=== PATIENT | female | born 1955 | race Caucasian/White ===

== ENCOUNTER 2020-03-18 11:44 | Outpatient (REF) | payer MEDICARE, SELFPAY ==
[2020-03-18 22:09] LABS: Abs Immature Grans 0.06 k/cumm (0.0-0.09); Absolute Basophil Count 0.03 k/cumm (0.0-0.2); Absolute Eosinophil Count 0.31 k/cumm (0.0-0.7); Absolute Lymphocyte Count 1.51 k/cumm (1.2-3.4); Absolute Monocyte Count 1.09 k/cumm (0.11-0.7); Basophils % 0.3; Eosinophils % 2.7; Immature Grans % 0.5 %; Mean Corp. HGB Concentration 34.1 g/dL (32.0-36.0); Mean Corpuscular Hemoglobin 32.4 pg (27.0-33.0); Mean Corpuscular Volume 94.9 fL (80-95); Mean Platelet Volume 9.8 fL (8.0-11.0); Monocytes % 9.4; Neutrophils % 74.1; Platelet Count 257 x1000/uL (130-400); RBC 4.32 m/cumm (4.00-5.20); RBC Distribution Width 13.2 % (11.7-14.6); White Blood Cell Count 11.64 k/cumm (4.4-10.8)
[2020-03-18 22:13] LABS: Absolute Neutrophil Count 8.63 k/cumm (1.2-6.7)
[2020-03-18 22:17] LABS: ALT 84 U/L (14-59); AST 96 U/L (15-37); Albumin 3.5 g/dL (3.4-5.0); Alkaline Phosphatase 205 U/L (46-116); Anion Gap 8.9 mmol/L (3-11); BUN 15 mg/dL (7-18); Bilirubin, Total 0.7 mg/dL (0.2-1.0); CO2 24.1 mmol/L (21.0-32.0); CREATININE 0.95 mg/dL (0.55-1.02); Calcium 9.6 mg/dL (8.5-10.1); Calculated LDL 91 mg/dL (<100); Chloride 84 mmol/L (98-107); Cholesterol 149 mg/dL (<200); Estimated GFR 59.04 (mL/min/1.73m2); Glucose 86 mg/dL (74-106); HDL Cholesterol 37 mg/dL (40-60); Potassium 5.3 mmol/L (3.5-5.1); Total Protein 7.2 g/dL (6.4-8.2); Triglyceride 105 mg/dL (<150)
[2020-03-18 22:26] LABS: Sodium 117 mmol/L (136-145)
[2020-03-18 22:28] LABS: Hemoglobin A1C 5.3 % (3.8-5.6)
== END 2020-03-18 12:04 ==
LOC: NCHCN 11:44
PROVIDERS: PCP Family Medicine; Visit Provider Nurse Practitioner Family
DX: I10 Essential (primary) hypertension (principal); E78.00 Pure hypercholesterolemia, unspecified; M54.5 Low back pain
CPT/HCPCS: 80053; 80061; 83036; 85025

== ENCOUNTER 2020-04-02 11:09 | Outpatient (REF) | payer MEDICARE, SELFPAY ==
[2020-04-02 22:26] LABS: ALT 26 U/L (14-59); AST 30 U/L (15-37); Alkaline Phosphatase 176 U/L (46-116); Anion Gap 12.1 mmol/L (3-11); BUN 7 mg/dL (7-18); Bilirubin, Total 0.7 mg/dL (0.2-1.0); CO2 22.9 mmol/L (21.0-32.0); CREATININE 0.83 mg/dL (0.55-1.02); Calcium 9.8 mg/dL (8.5-10.1); Chloride 94 mmol/L (98-107); Potassium 5.2 mmol/L (3.5-5.1); Sodium 129 mmol/L (136-145); Total Protein 7.3 g/dL (6.4-8.2)
[2020-04-02 22:35] LABS: Albumin 3.4 g/dL (3.4-5.0); Glucose 87 mg/dL (74-106)
[2020-04-04 08:56] LABS: Lipase 93 U/L (73-393)
== END 2020-04-02 11:29 ==
LOC: NCHCN 11:09
PROVIDERS: PCP Family Medicine; Visit Provider Nurse Practitioner Family
DX: E87.1 Hypo-osmolality and hyponatremia (principal); F10.10 Alcohol abuse, uncomplicated; M54.5 Low back pain
CPT/HCPCS: 80053; 83690

== ENCOUNTER 2020-10-24 13:48 | Outpatient (REF) | payer MEDICARE, SELFPAY ==
[2020-10-24 20:51] LABS: ALT 22 U/L (14-59); AST 31 U/L (15-37); Albumin 3.2 g/dL (3.4-5.0); Alkaline Phosphatase 170 U/L (46-116); Anion Gap 7.1 mmol/L (3-11); BUN 6 mg/dL (7-18); Bilirubin, Total 0.5 mg/dL (0.2-1.0); CO2 26.9 mmol/L (21.0-32.0); CREATININE 0.7 mg/dL (0.55-1.02); Calcium 9.3 mg/dL (8.5-10.1); Chloride 96 mmol/L (98-107); Glucose 99 mg/dL (74-106); Magnesium 1.7 mg/dL (1.8-2.4); Potassium 4.6 mmol/L (3.5-5.1); Sodium 130 mmol/L (136-145); TSH (W/Ref FT4) 1.25 uIU/mL (0.36-3.74); Total Protein 6.9 g/dL (6.4-8.2)
== END 2020-10-24 14:08 ==
LOC: NCHCN 13:48
PROVIDERS: PCP Family Medicine; Visit Provider Nurse Practitioner Family
DX: I10 Essential (primary) hypertension (principal); E87.5 Hyperkalemia
CPT/HCPCS: 80053; 83735; 84443

== ENCOUNTER 2021-01-02 14:57 | Outpatient (REF) | payer MEDICARE, SELFPAY ==
[2021-01-02 20:29] LABS: Abs Immature Grans 0.03 10^3/uL (0.0-0.06); Absolute Basophil Count 0.07 10^3/uL (0.0-0.2); Absolute Lymphocyte Count 1.28 10^3/uL (1.2-3.4); Absolute Monocyte Count 1.13 10^3/uL (0.1-0.8); Absolute Neutrophil Count 5.78 10^3/uL (1.2-6.7); Basophils % 0.8; Eosinophils % 6.7; HCT 43.5 % (36.0-46.0); HGB 14.6 g/dL (11.2-15.7); Immature Grans % 0.3; Lymphocytes % 14.4; MCH 30.8 pg (27.0-33.0); MCHC 33.6 % (32.0-36.0); MCV 91.8 fL (80-95); Monocytes % 12.7; Neutrophils % 65.1; Nucleated RBC 0 %; Platelet Count 279 10^3/uL (130-400); RBC 4.74 10^6/uL (3.93-5.22); RDW 13.9 % (11.7-14.6); RDW-SD 47.4 fL; WBC 8.89 10^3/uL (4.4-10.8)
[2021-01-02 20:33] LABS: Magnesium 1.8 mg/dL (1.8-2.4)
[2021-01-06 09:28] LABS: Hepatitis C Ab w Rflx HCV PCR Negative (Negative)
[2021-01-06 09:48] LABS: HIV-1/2 Ag & Ab Screen Negative (Negative)
== END 2021-01-02 14:58 | disposition home or self-care (01) ==
LOC: NCHCN 14:57
PROVIDERS: PCP Family Medicine; Visit Provider Nurse Practitioner Family
DX: R63.4 Abnormal weight loss (principal); E83.42 Hypomagnesemia; Z11.3 Encounter for screening for infections with a predominantly sexual mode of transmission; Z11.59 Encounter for screening for other viral diseases; Z11.4 Encounter for screening for human immunodeficiency virus [HIV]
CPT/HCPCS: 86803; 87389; 83735; 85025